=== PATIENT | female | born 2000 | race Caucasian/White ===

== ENCOUNTER 2019-04-20 14:53 | Emergency (ER) | payer OTHER ==
[2019-04-20 15:31] VITALS: BP 110/68
[2019-04-20 15:55] LABS: Influenza A Molecular POSITIVE (Negative)
--- NOTE | 2019-04-20 15:57 | UC ---
Throat Pain/Nasal Aniket HPI - HPI Summary HPI Summary: Patient is a 18yo female presenting with nasal congestion, sore throat, chills x3 days. Patient states she "figured she had the flu and would just ride it out. " STates all symptoms improved besides nasal congestion. States congestion worsening and causing "forehead" pressure and sinus headaches." Patient states concern for sinus infection. She states she is "really prone to sinus infections and gets them every year after being sick." States the last one she had was "debilitating" and she waited too long to be seen. States she has been taking mucinex without relief. - History of Current Complaint Chief Complaint: UCRespiratory Stated Complaint: SINUS CONGESTION Hx Obtained From: Patient Hx Last Menstrual Period: 03/15/2020 Pain Intensity: 6 Pain Scale Used: 0-10 Numeric - Allergies/Home Medications Allergies/Adverse Reactions: Allergies Allergy/AdvReac Type Severity Reaction Status Date / Time No Known Allergies Allergy Verified 04/20/19 15:30 Home Medications: Home Medications Ibuprofen TAB* [Motrin TAB* 400 MG] 04/20/19 [History] PMH/Surg Hx/FS Hx/Imm Hx - Surgical History Surgical History: Yes Surgery Procedure, Year, and Place: hernia repair at 5 - Social History Alcohol Use: Weekly Substance Use Type: None Smoking Status (MU): Never Smoked Tobacco Review of Systems All Other Systems Reviewed And Are Negative: Yes Constitutional: Positive: Negative ENT: Positive: Sinus Congestion, Sinus Pain/Tenderness - frontal Respiratory: Positive: Negative Cardiovascular: Positive: Negative Gastrointestinal: Positive: Negative Musculoskeletal: Positive: Negative Neurological: Positive: Headache - "sinus headache" Physical Exam - Summary Physical Exam Summary: Vital Signs Reviewed: Yes A+Ox3, no distress, well-appearing Eyes: Conjunctiva Clear ENT: Hearing grossly normal, TM x 2 clear, +nasal congestion, +PND, +frontal sinus tenderness, uvula midline, moist, no exudate, no erythema Neck: Positive: Supple Respiratory: Positive: No respiratory distress, No accessory muscle use + CTA throughout no w/r Cardiovascular: RRR nl s1, s2 no m/r Musculoskeletal Exam: WOO x 4 without difficulty Neurological: Positive: Alert Psychological: Positive: age appropriate behavior Skin: Positive: no rash, no ecchymosis Vital Signs: Initial Vital Signs Temp 98.2 F 04/20/19 15:24 Pulse 98 04/20/19 15:24 Resp 16 04/20/19 15:24 BP 110/68 04/20/19 15:24 Pulse Ox 99 04/20/19 15:24 Lab Results 04/20/19 Range/Units 15:52 Influenza A (Rapid) Positive A (Negative) Throat Pain/Nasal Course/Dx - Course Course Of Treatment: Positive rapid flu A. Patient states flu s/s better but with worsening nasal congestion and sinus pressure/tenderness. States she is prone to sinus infections so I treated with augmentin and instructed to continue with symptomatic treatment. Instructed to follow up with [facility] or [facility] if symptoms do not resolve. Patient voiced understanding and agreed with treatment plan. - Differential Dx/Diagnosis Differential Diagnosis/HQI/PQRI: Influenza, Sinusitis, URI Provider Diagnosis: Influenza A, Sinusitis Discharge ED - Sign-Out/Discharge Documenting (check all that apply): Patient Departure All imaging exams completed and their final reports reviewed: No Studies - Discharge Plan Condition: Stable Disposition: HOME Prescriptions: Amoxicillin/Clavulanate TAB* [Augmentin TAB 875*] 875 mg PO BID #10 tab Patient Education Materials: Sinusitis (ED), Influenza (ED) Referrals: [facility] [Outside] - If Needed [facility] [Provider Group] - If Needed Additional Instructions: You tested positive for influenza today. Continue to take over the counter cold and flu medications as directed for symptom relief. Take Augmentin as prescribed for treatment of your sinusitis. You may also use Flonase for symptomatic relief. Follow up with [facility] or the [facility] listed below if symptoms do not resolve within 7 days. - Billing Disposition and Condition Condition: STABLE Disposition: Home
== END 2019-04-20 16:20 | disposition home or self-care (01) ==
LOC: UCEAST 14:53
DX: J10.1 Influenza due to other identified influenza virus with other respiratory manifestations (principal); J32.9 Chronic sinusitis, unspecified
CPT/HCPCS: 99201; G0463